=== PATIENT | female | born 1945 | race Caucasian/White ===

== ENCOUNTER 2019-03-19 21:43 | Emergency (ER) | payer OTHER ==
[~2019-03-19] VITALS: Ht 167.6 cm; Wt 90.0 kg
--- NOTE | 2019-03-19 21:45 | NUR ---
BIB [facility] W/ CO EPISTAXIS AND MOUTH PAIN SP MECHANICAL GLF. PT REPORTS DIZZINESS AFTER FALL BUT HAS SINCE RESOLVED. LACERATION NOTED TO NASAL BRIDGE, R NARE EPISTAXIS. PT DENIES LOC/N/V/MIDLINE NECK OR BACK PAIN/CARLSON. NOT ON BLOOD THINNERS. FSBS POULTRY KILLER 102 TETANUS UTD BP/SPO2/ECG MONITORING IN PLACE. NSR ON MONITOR. EKG COMPLETED UPON ARRIVAL.
[2019-03-19] MEDS ORDERED: PHENYLEPHRINE 10 MG/ML ONE (22:00)
[2019-03-19] MEDS ORDERED: LIDOCAINE-MPF 1%, 5ML ONE (22:00)
[2019-03-19] MEDS ORDERED: PHENYLEPHRINE NASAL 1%, 15ML SPRAY ONE (22:01)
--- NOTE | 2019-03-19 22:08 | NUR ---
W/ PERMISSION FROM PT, DAUGHTER IBETH UPDATED BT PHONE TO PT CONDITION/POC.
--- NOTE | 2019-03-19 23:05 | NUR ---
BLEEDING APPEARS IMPROVED. PT SITTING UP IN [facility] ON CELL PHONE
--- NOTE | 2019-03-19 23:29 | NUR ---
PT TO CT
[2019-03-19] MEDS ORDERED: OXYcodone/APAP 5/325MG TABLET PO ONE (23:30)
[2019-03-19] MEDS ORDERED: OXYcodone/APAP 5/325MG TABLET ONE (23:33)
--- NOTE | 2019-03-19 23:43 | NUR ---
PT RETURNED FROM CT. AMBULATED W EASE TO RESTROOM. PT MEDICATED PER EMAR FOR PAIN
--- NOTE | 2019-03-20 00:09 | NUR ---
CHART UP FOR RECHECK
--- NOTE | 2019-03-20 00:45 | NUR ---
PT SITTING UP IN [facility]. BLEEDING APPEARS CONTROLED. PT REPORTS IMPROVEMENT IN PAIN WITH MEDICATIONS, 03/04. CHART UP FOR RECHECK. AWAITING FURTHER ORDERS.
--- NOTE | 2019-03-20 00:56 | NUR ---
RECEIVED REPORT FROM KAYLIE HENSLEY TO ASSUME CARE OF PT. DR. DE LEON AT FOR [facility].
--- NOTE | 2019-03-20 01:16 | NUR ---
NOSE IRRIGATED PER VERBAL REQUEST FROM [facility]. PT. TO HAVE SUTURES PLACED. PT. TOLERATED WELL.
[2019-03-20] MEDS ORDERED: LIDOCAINE-MPF 1%, 5ML ONE (01:30)
[2019-03-20] MEDS ORDERED: LIDOCAINE 1%, 2ML INFIL ONE (01:30)
--- NOTE | 2019-03-20 01:32 | NUR ---
[facility] AT BS FOR SUTURES.
[2019-03-20 02:12] VITALS: BP 148/60
== END 2019-03-20 02:12 | disposition home or self-care (01) ==
LOC: ED 23:54
DX: S02.2XXB Fracture of nasal bones, initial encounter for open fracture (principal); Z88.2 Allergy status to sulfonamides; Z88.8 Allergy status to other drugs, medicaments and biological substances; W18.09XA Striking against other object with subsequent fall, initial encounter; Y93.01 Activity, walking, marching and hiking; Y92.89 Other specified places as the place of occurrence of the external cause; Y99.8 Other external cause status
CPT/HCPCS: 12051; 70486; 93005; 99284